=== PATIENT | female | born 1985 | race Caucasian/White ===

== ENCOUNTER → 2016-08-03 | Outpatient (CLI) | payer BC, OTHER ==
[~2016-08-03] MED LIST: OXYCODONE HCL 55 MG PO; VICOPROFEN 2001 EAC1 PO
== END | disposition home or self-care (01) ==
LOC: RAD 08:19
DX: M48.02 Spinal stenosis, cervical region (principal)

== ENCOUNTER → 2017-08-28 | Outpatient (CLI) | payer BC, OTHER | LOC: RAD 15:28 | DX: M41.84 Other forms of scoliosis, thoracic region (principal) ==

== ENCOUNTER → 2019-06-05 | Outpatient (CLI) | payer BC, OTHER | LOC: RAD 16:03 | DX: Z03.89 Encounter for observation for other suspected diseases and conditions ruled out (principal) ==

== ENCOUNTER → 2020-05-26 | Outpatient (CLI) | payer BC, OTHER | LOC: CAT 14:22 | DX: N20.0 Calculus of kidney (principal); R20.0 Anesthesia of skin ==